=== PATIENT | female | born 2005 | race Caucasian/White ===

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

== ENCOUNTER 2023-03-23 10:36 | Emergency (ER) | payer MEDICAID ==
[~2023-03-23] VITALS: Ht 172.7 cm; Wt 57.6 kg
[2023-03-23 11:07] LABS: BASOPHILS % (AUTO) 0 % (0-10); EOSINOPHILS # (AUTO) 0.1 10^3/uL (0.0-0.3); EOSINOPHILS % (AUTO) 1 % (0-10); HEMATOCRIT 35 % (35-52); HEMOGLOBIN 12.2 g/dL (11.5-16.0); LYMPHOCYTES # (AUTO) 2.8 10^3/uL (1.0-4.0); LYMPHOCYTES % (AUTO) 28 % (12-44); MEAN CORPUSCULAR HEMOGLOBIN 30 pg (25-34); MEAN CORPUSCULAR HGB CONC 35 g/dL (32-36); MEAN CORPUSCULAR VOLUME 86 fL (80-99); MEAN PLATELET VOLUME 9.9 fL (9.0-12.2); MONOCYTES # (AUTO) 0.7 10^3/uL (0.0-1.0); MONOCYTES % (AUTO) 6 % (0-12); NEUTROPHILS # (AUTO) 6.5 10^3/uL (1.8-7.8); NEUTROPHILS % (AUTO) 64 % (42-75); PLATELET COUNT 211 10^3/uL (130-400); WHITE BLOOD COUNT 10.1 10^3/uL (4.3-11.0)
[2023-03-23] MEDS ORDERED: NS IV 1000 ML 1,000 ML IV SCH (11:15)
[2023-03-23 11:16] LABS: ALBUMIN 3.9 GM/DL (3.2-4.5); CHLORIDE 105 MMOL/L (98-107); POTASSIUM 3.7 MMOL/L (3.6-5.0); SODIUM 137 MMOL/L (135-145)
[2023-03-23 11:19] LABS: BILIRUBIN,URINE NEGATIVE (NEGATIVE); CLARITY,URINE CLOUDY; COLOR,URINE YELLOW; GLUCOSE, URINE (UA) NEGATIVE (NEGATIVE); KETONES,URINE NEGATIVE (NEGATIVE); LEUKOCYTE ESTERASE ,URINE 3+ (NEGATIVE); NITRITE,URINE NEGATIVE (NEGATIVE); PH,URINE 7.5 (5-9); PROTEIN,URINE NEGATIVE (NEGATIVE)
[2023-03-23 11:19] LABS: GLUCOSE 61 MG/DL (70-105); TOTAL PROTEIN 6.5 GM/DL (6.4-8.2)
--- NOTE | 2023-03-23 11:19 | ED GU-Female ---
General Chief Complaint: OB < 20 WEEKS Stated Complaint: 12 WKS | CRAMPING | SPOTTING Nursing Triage Note: PT AMB TO [facility] WITH CC OF ABNORMAL VAGINAL BLEEDING AND ABD CRAMPS X3-4 DAYS. PT STATES THAT SHE IS 12 WEEKS ON SUNDAY. Source: patient Exam Limitations: no limitations History of Present Illness Date Seen by Provider: Mar 23, 2023 Time Seen by Provider: 10:59 Initial Comments 17-year-old female at 11 weeks 6 days gestation presents to the ER with reports of intermittent lower abdominal cramping for the last couple weeks and vaginal spotting that started 3 days ago. She reports 1 episode of vaginal spotting 3 days ago, states that it occurred again last night after she had worsening abdominal cramping. She reports that she has been having nausea and vomiting, states she vomits approximately twice a day. States she has been drinking water, uncertain if she is drinking enough. She denies vaginal di scharge and dysuria. She also reports sharp intermittent left-sided chest pain. 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 States that the chest pain from this usually occurs with vigorous activity, but states lately it has been occurring at rest or light activity. Last episode was last night while she was walking at work and it lasted approximately 5 to 6 minutes. Allergies and Home Medications Allergies Coded Allergies: latex (Verified Allergy, Unknown, 03/23/23) Patient Home Medication List Home Medication List Reviewed: Yes Cephalexin (Cephalexin) 500 Mg Tablet, 500 MG PO QID Prescribed by: Angela Trujillo on 03/23/23 1300 Review of Systems Review of Systems Constitutional: see HPI Expected Date of Delivery: Oct 06, 2023 Past [id number]-Pnvjyj-Fxatbt Hx Patient Social History Tobacco Use?: No Substance use?: No Alcohol Use?: No Past Medical History Expected Date of Delivery: Oct 06, 2023 Physical Exam Vital Signs Vital Signs - First Documented 03/23/23 10:44 Temp 36.0 Pulse 72 B/P (MAP) 129/75 (93) Pulse Ox 100 O2 Delivery Room Air Capillary Refill : Height, Weight, BMI Height: '" Weight: lbs. oz. kg; 19.00 BMI Method: General Appearance: WD/WN, no apparent distress Neck: supple, normal inspection Cardiovascular: regular rate, rhythm Respiratory: lungs clear, normal breath sounds, no respiratory distress, no accessory muscle use Gastrointestinal: normal bowel sounds, non tender, soft Extremities: normal range of motion, normal inspection Neurologic/Psychiatric: alert, normal mood/affect Skin: normal color, warm/dry Progress/Results/Core Measures Suspected Sepsis SIRS Temperature: Pulse: 72 Respiratory Rate: Laboratory Tests 03/23/23 11:04: White Blood Count 10.1 Blood Pressure 129 /75 Mean: 93 Laboratory Tests 03/23/23 11:04: Platelet Count 211 03/23/23 11:10: Creatinine 0.68, Total Bilirubin 0.7 Results/Orders Lab Results Laboratory Tests Test 03/23/23 11:04 03/23/23 11:10 Range/Units White Blood Count 10.1 4.3-11.0 10^3/uL Red Blood Count 4.02 3.80-5.11 10^6/uL Hemoglobin 12.2 11.5-16.0 g/dL Hematocrit 35 35-52 % Mean Corpuscular Volume 86 80-99 fL Mean Corpuscular Hemoglobin 30 25-34 pg Mean Corpuscular Hemoglobin Concent 35 32-36 g/dL Red Cell Distribution Width 12.4 10.0-14.5 % Platelet Count 211 130-400 10^3/uL Mean Platelet Volume 9.9 9.0-12.2 fL Immature Granulocyte % (Auto) 1 % Neutrophils (%) (Auto) 64 42-75 % Lymphocytes (%) (Auto) 28 12-44 % Monocytes (%) (Auto) 6 0-12 % Eosinophils (%) (Auto) 1 0-10 % Basophils (%) (Auto) 0 0-10 % Neutrophils # (Auto) 6.5 1.8-7.8 10^3/uL Lymphocytes # (Auto) 2.8 1.0-4.0 10^3/uL Monocytes # (Auto) 0.7 0.0-1.0 10^3/uL Eosinophils # (Auto) 0.1 0.0-0.3 10^3/uL Basophils # (Auto) 0.0 0.0-0.1 10^3/uL Immature Granulocyte # (Auto) 0.1 0.0-0.1 10^3/uL Urine Color YELLOW Urine Clarity CLOUDY Urine pH 7.5 5-9 Urine Specific Marion 1.020 1.016-1.022 Urine Protein NEGATIVE NEGATIVE Urine Glucose (UA) NEGATIVE NEGATIVE Urine Ketones NEGATIVE NEGATIVE Urine Nitrite NEGATIVE NEGATIVE Urine Bilirubin NEGATIVE NEGATIVE Urine Urobilinogen 1.0 < = 1.0 MG/DL Urine Leukocyte Esterase 3+ H NEGATIVE Urine RBC (Auto) TRACE H NEGATIVE Urine RBC NONE /HPF Urine WBC 10-25 H /HPF Urine Squamous Epithelial Cells 5-10 /HPF Urine Crystals PRESENT H /LPF Urine Amorphous Sediment LARGE BRANDI PHOSPHATE H /LPF Urine Bacteria MODERATE H /HPF Urine Casts NONE /LPF Urine Mucus NEGATIVE /LPF Urine Culture Indicated YES Human Chorionic Gonadotropin, Quant [id number] H <5 MIU/ML Sodium Level 137 135-145 MMOL/L Potassium Level 3.7 3.6-5.0 MMOL/L Chloride Level 105 98-107 MMOL/L Carbon Dioxide Level 20 L 21-32 MMOL/L Anion Gap 12 5-14 MMOL/L Blood Urea Nitrogen 8 7-18 MG/DL Creatinine 0.68 0.60-1.30 MG/DL Estimat Glomerular Filtration Rate 129 BUN/Creatinine Ratio 12 Glucose Level 61 L 70-105 MG/DL Calcium Level 9.0 8.5-10.1 MG/DL Corrected Calcium 9.1 8.5-10.1 MG/DL Magnesium Level 1.8 1.6-2.4 MG/DL Total Bilirubin 0.7 0.1-1.0 MG/DL Aspartate Amino Transf (AST/SGOT) 18 5-34 U/L Alanine Aminotransferase (ALT/SGPT) 10 0-55 U/L Alkaline Phosphatase 36 L 40-136 U/L Troponin I < 0.028 <0.028 NG/ML Total Protein 6.5 6.4-8.2 GM/DL Albumin 3.9 3.2-4.5 GM/DL My Orders Orders - ANGELA DAN [employer]NAGER [employer] Cbc And Automated Diff (03/23/23 11:00) Hcg,Quantitative (03/23/23 11:00) Abo Rh Type (03/23/23 11:00) Ua Culture If Indicated (03/23/23 11:00) Urine Bedside (03/23/23 11:00) Magnesium (03/23/23 11:07) Ekg Tracing (03/23/23 11:07) Comprehensive Metabolic Panel (03/23/23 11:07) Monitor-Rhythm Ecg Trace Only (03/23/23 11:07) Ed Iv/Invasive Line Start (03/23/23 11:07) Troponin I Ramona (03/23/23 11:07) Ns Iv 1000 Ml (Ns Iv 1000 Ml) (03/23/23 11:15) Urine Culture (03/23/23 11:04) Us Ob Single Fetus<14 [id number] (03/23/23 11:10) Rho(D) Immune Globulin (Rho(D) Immune Gl (03/23/23 15:30) Vital Signs/I&O 03/23/23 03/23/23 10:44 13:07 Temp 36.0 Pulse 72 61 B/P (MAP) 129/75 (93) 100/66 Pulse Ox 100 99 O2 Delivery Room Air Room Air Capillary Refill : Blood Pressure Mean: 93 Progress Note : Progress Note Patient seen and evaluated, resting comfortably in bed, no acute distress. Based on exam and symptoms, differential diagnosis includes but is not limited to miscarriage, threatened miscarriage, subchorionic hemorrhage, UTI, dehydration. Work-up initially including CBC, CMP, magnesium, troponin, EKG, pelvic ultrasound. IV fluids ordered. 1257 Labs and ultrasound reviewed. CBC grossly normal. CMP shows slightly decreased CO2 20, glucose decreased 61, troponin negative. Magnesium normal. hCG 146,838. Urinalysis shows 3+ leukocytes, trace RBCs, 10-25 WBCs, moderate bacteria. Ultrasound shows single living intrauterine gestation measuring 11 weeks and 5 days. Heart rate at 160 bpm. No abnormalities are noted. Bleeding possibly related to urinary tract infection. Results discussed with patient. Patient instructed to call Dr. Cee's office today to schedule a follow-up appointment. Will treat urinary tract infection. Patient is stable for discharge at this time. Discharge instructions and return precautions provided. 1530 I had forgotten to evaluate patient's Rh type prior to discharge. Upon review, Rh was negative. I called patient back to return for a RhoGAM injection. She has returned, RhoGAM has been ordered and is going to be administered by nursing staff at this time. ECG Initial ECG Impression Date: Mar 23, 2023 Initial ECG Impression Time: 11:49 Initial ECG Rate: 62 Initial ECG Rhythm: Normal Sinus Initial ECG Intervals: Normal Initial ECG Impression: Normal Initial ECG Comparisson: No Previous ECG Available Diagnostic Imaging Diagonstic Imaging: Ultrasound Plain Films/CT/US/NM/MRI: pelvis Comments [facility]. [place], [place] NAME: DALIA VERA [facility] REC#: [id number] PT STATUS: REG ER : 2005 PHYSICIAN: ANGELA DAN APRN ADMIT DATE: 03/23/23/ER Signed Date of Exam:03/23/23 US OB SINGLE FETUS<14 [id number] PROCEDURE: US OB SINGLE FETUS <14 WKS. TECHNIQUE: Multiple real-time grayscale images were obtained over the gravid uterus in various projections. INDICATION: Spotting for three days. COMPARISON: None. FINDINGS: A single live intrauterine gestation is visualized with a crown-rump length of 4.9 cm, consistent with 11 weeks 5 days. heart tones measure 160 BPM. The placenta is anterior and not low lying. Amniotic fluid visually appears normal, with no dedicated measurements performed. A formal anatomy survey was not performed, however no obvious abnormalities are seen. The ovaries are not visualized due to overlapping bowel gas. No adnexal masses seen. No free fluid in the pelvis. IMPRESSION: 1. Single live intrauterine gestation measuring 11 weeks 5 days with an estimated due date of 10/07/2023. These are within range with the clinical dates. No abnormalities are identified. Recommend continued follow-up, as indicated. Dictated by: Dictated on workstation # [id number] Dict: 03/23/23 1229 Trans: 03/23/23 1237 [id number] [id number] Interpreted by: TEMI PEÑALOZA DO Electronically signed by: TEMI PEÑALOZA DO 03/23/23 1237 Departure Impression Primary Impression: Vaginal bleeding affecting early Additional Impression: UTI (urinary tract infection) Qualified Codes: N30.01 - Acute cystitis with hematuria Disposition: HOME, SELF-CARE Condition: Stable Departure-Patient Inst. Decision time for Depature: 12:57 Referrals: LEV CEE MD (PCP/Family) Primary Care Physician Patient Instructions: Bleeding in Early (DC) Add. Discharge Instructions: Complete full course of antibiotic as prescribed. Call Dr. Cee today to schedule a follow-up appointment. Make sure you are drinking plenty of water. You may take your Zofran as needed for nausea and vomiting. You may take 1000 mg of Tylenol every 8 hours as needed for pain. Pelvic rest until you follow-up with Dr. Cee, nothing into the vagina, no intercourse. Return for significant bleeding, if you are saturating a heavy menstrual pad every hour for several hours, you become lightheaded, dizzy, or pass out while bleeding, or any other new, concerning, or worsening symptoms. All discharge instructions reviewed with patient and/or family. Voiced understanding. Scripts Cephalexin (Cephalexin) 500 Mg Tablet 500 MG PO QID for 7 Days, #28 TAB 0 Refills Prov: ANGELA DAN APRN 03/23/23 ANGELA DAN APRN Mar 23, 2023 11:19
[2023-03-23 11:20] LABS: BILIRUBIN,TOTAL 0.7 MG/DL (0.1-1.0); CARBON DIOXIDE 20 MMOL/L (21-32)
[2023-03-23 11:20] LABS: AMORPHOUS SEDIMENT,UR LARGE AMOR PHOSPHATE /LPF; BACTERIA,URINE MODERATE /HPF
[2023-03-23 11:22] LABS: ALKALINE PHOSPHATASE 36 U/L (40-136); CREATININE SERUM 0.68 MG/DL (0.60-1.30); GFR ESTIMATED 129
[2023-03-23 11:23] LABS: BUN/CREATININE RATIO 12
[2023-03-23 11:25] LABS: ALANINE AMINOTRANSFERASE 10 U/L (0-55); MAGNESIUM 1.8 MG/DL (1.6-2.4)
--- NOTE | 2023-03-23 12:38 | Diagnostic Imaging Report ---
PROCEDURE: US OB SINGLE FETUS <14 WKS. TECHNIQUE: Multiple real-time grayscale images were obtained over the gravid uterus in various projections. INDICATION: Spotting for three days. COMPARISON: None. FINDINGS: A single live intrauterine gestation is visualized with a crown-rump length of 4.9 cm, consistent with 11 weeks 5 days. heart tones measure 160 BPM. The placenta is anterior and not low lying. Amniotic fluid visually appears normal, with no dedicated measurements performed. A formal anatomy survey was not performed, however no obvious abnormalities are seen. The ovaries are not visualized due to overlapping bowel gas. No adnexal masses seen. No free fluid in the pelvis. IMPRESSION: 1. Single live intrauterine gestation measuring 11 weeks 5 days with an estimated due date of 10/07/2023. These are within range with the clinical dates. No abnormalities are identified. Recommend continued follow-up, as indicated. Dictated by: Dictated on workstation # [id number]
[2023-03-23] MEDS ORDERED: CEPH500T PO (13:00)
[2023-03-23 13:07] VITALS: BP 99/61
[2023-03-23] MEDS ORDERED: RHO(D) IMMUNE GLOBULIN 300 MCG/2 ML SYRINGE IM/IV ONE (15:30)
== END 2023-03-23 15:48 | disposition home or self-care (01) ==
LOC: EDUNIT# 10:36 → ER 10:38
DX: O20.9 Hemorrhage in early pregnancy, unspecified (principal); O23.41 Unspecified infection of urinary tract in pregnancy, first trimester; N39.0 Urinary tract infection, site not specified; Z3A.11 11 weeks gestation of pregnancy; Z91.040 Latex allergy status
CPT/HCPCS: 36415; 76801; 80053; 81000; 83735; 84484; 84702; 84703; 85025; 86900; 86901; 87088; 93005; 96372